=== PATIENT | female | born 1935 | race Caucasian/White ===

== ENCOUNTER 2017-04-05 08:15 | Day surgery (SDC) | payer BC, MEDICARE ==
[~2017-04-05 08:15] MED LIST: BUPIVACAINE HCL 0.75% INJ/PF (7.5 MG/1 ML) 10 ML SDV OS PRN; KETOROLAC TROMETHAMINE 0.45% 4 DROP/0.4 ML DROPERETTE OS PRN; LIDOCAINE 4% INJ/PF (40 MG/ML) 5 ML AMPUL OS PRN; MIDAZOLAM 2 MG/2 ML INJ ONE
[2017-04-05] MEDS ORDERED: CHONDR SU A NA/HYALUR INTRAOC KIT (SURGICARE) ONE (09:18)
[2017-04-05] MEDS ORDERED: EPINEPHRINE INJ/PF 1 MG/1 ML AMPULE ONE (09:18)
[2017-04-05] MEDS: TROPICAMIDE 1% OPH SOLN 3 ML OS PRN ×3 (09:33→09:53)
[2017-04-05] MEDS: CYCLOPENTOLATE 0.2%/PHENYLEPHRINE 1% OPH SOLN 2 ML OS PRN ×3 (09:33→09:53)
[2017-04-05] MEDS: BESIFLOXACIN HCL 0.6% OPH SUSP 5 ML BOTTLE OS PRN ×3 (09:33→10:43)
[2017-04-05] MEDS: LIDOCAINE 3.5% OPH GEL/PF 1 ML/TUBE OS PRN ×2 (09:34→09:53)
--- NOTE | 2017-04-05 11:02 | [facility] OPERATIVE REPORT E ---
[facility] Operative Report NAME: RALEIGH TONEY AGE: 81Y DATE OF SURGERY: 04/05/2017 ROOM: PREOPERATIVE DIAGNOSIS: Cataract, left eye. POSTOPERATIVE DIAGNOSIS: Cataract, left eye. OPERATION: Phacoemulsification with posterior chamber intraocular lens, left eye. SURGEON: MILTON CAMPOS M.D. ANESTHESIA: Topical with MAC. INDICATIONS FOR SURGERY: Difficulty reading captions on TV. Best corrected visual acuity 20/70. DESCRIPTION OF PROCEDURE: The patient was brought to the Operating Room and placed on the operative table. Following tetracaine drops, topical anesthesia was administered. This consisted of instrument wipe pledgets soaked in a solution of 4% Xylocaine mixed with 0.75% Marcaine in a 1:2 ratio. A 2 x 1 cm pledget was placed in the superior fornix. A 1 x 1 cm pledget was placed in the inferior fornix. The eye was patched shut for 5 minutes. The patch was removed. The eye was sterilely prepped and draped in the usual manner. Lid speculum was placed in the eye. The pledgets were removed. 4-0 black silk sutures were placed around the superior and the inferior rectus muscles to be used as traction. A conjunctival peritomy was made at the 10 o'clock position. Hemostasis was obtained with bipolar cautery. A posterior limbal groove was created using a crescent knife and dissected anteriorly towards the cornea. A sharp point blade was used to create a paracentesis site at the 2 o'clock position. A 2.4 mm keratome was used to enter the anterior chamber through the groove. Viscoelastic was injected into the anterior chamber. An anterior capsulotomy was performed using Utrata forceps in a capsulorrhexis fashion. Hydrodissection and hydrodelineation were performed. Phacoemulsification was performed in [id number] technique. A total of 54 seconds phaco time was used. Following this, the I/A unit was used to remove residual cortex. Viscoelastic was injected into the capsular bag. Intraocular lens model SN60WF, 20.0 diopters, serial number [id number] was placed in the capsular bag. The I/A unit was used to remove residual viscoelastic. The wound was seen to be watertight under high and low pressure, and no sutures were placed. The intraocular lens was well centered. The pressure was adjusted in the eye to normal pressure. The 4-0 black silk sutures and lid speculum were removed. The eye was shielded after Besivance drops were placed. The patient tolerated the procedure well and was sent to the Recovery Room in good condition. DICTATING PHYSICIAN: MILTON CAMPOS M.D. [id number] PHY#: [id number] ID: [id number] JOB#: [id number] ACCT: [id number] cc:MILTON CAMPOS M.D. >
--- NOTE | 2017-04-05 11:07 | [facility] DISCHARGE SUMMARY E ---
[facility] Discharge Summary NAME: RALEIGH TONEY AGE: 81Y ADMITTED: 04/05/2017 DISCHARGED: 04/05/2017 HOSPITAL COURSE: The patient is an 81-year-old lady who underwent uneventful cataract extraction with intraocular lens implant, left eye, on 04/05/2017. She will be discharged to home. She is instructed to resume preoperative medications, take Tylenol as needed for discomfort, to keep her eye shielded, to use Besivance, Durezol, and Ilevro at 3 p.m. and 8 p.m., and to follow up in my office in 1 day. DICTATING PHYSICIAN: MILTON CAMPOS M.D. [id number] PHY#: [id number] ID: [id number] JOB#: [id number] ACCT: [id number] cc:MILTON CAMPOS M.D. >
== END 2017-04-05 11:30 | disposition home or self-care (01) ==
LOC: SC 08:15
PROVIDERS: ATTEND Ophthalmology
PROC: 08RK3JZ Replacement of Left Lens with Synthetic Substitute, Percutaneous Approach (ICD-10-PCS; principal; 2017-04-05 09:45)
DX: H25.813 Combined forms of age-related cataract, bilateral (principal); H40.013 Open angle with borderline findings, low risk, bilateral; H04.123 Dry eye syndrome of bilateral lacrimal glands; I10 Essential (primary) hypertension; E03.9 Hypothyroidism, unspecified; Z79.899 Other long term (current) drug therapy
CPT/HCPCS: 66984; V2632; J2250; J3490 ×3; A9270 ×2; J0171; 142

== ENCOUNTER 2017-04-26 07:27 | Day surgery (SDC) | payer MEDICARE ==
[~2017-04-26 07:27] MED LIST changes: +BUPIVACAINE HCL 0.75% INJ/PF (7.5 MG/1 ML) 10 ML SDV OD PRN; -BUPIVACAINE HCL 0.75% INJ/PF (7.5 MG/1 ML) 10 ML SDV OS PRN; +KETOROLAC TROMETHAMINE 0.45% 4 DROP/0.4 ML DROPERETTE OD PRN; -KETOROLAC TROMETHAMINE 0.45% 4 DROP/0.4 ML DROPERETTE OS PRN; +LIDOCAINE 4% INJ/PF (40 MG/ML) 5 ML AMPUL OD PRN; -LIDOCAINE 4% INJ/PF (40 MG/ML) 5 ML AMPUL OS PRN
[2017-04-26] MEDS: TROPICAMIDE 1% OPH SOLN 3 ML OD PRN ×3 (07:45→08:08)
[2017-04-26] MEDS: BESIFLOXACIN HCL 0.6% OPH SUSP 5 ML BOTTLE OD PRN ×4 (07:45→08:54)
[2017-04-26] MEDS: CYCLOPENTOLATE 0.2%/PHENYLEPHRINE 1% OPH SOLN 2 ML OD PRN ×3 (07:45→08:08)
[2017-04-26] MEDS: TETRACAINE HCL 0.5% OPH SOLN 0.6 ML DROPERETTE OD PRN ×2 (07:45→08:29)
[2017-04-26] MEDS ORDERED: EPINEPHRINE INJ/PF 1 MG/1 ML AMPULE ONE (07:59)
[2017-04-26] MEDS ORDERED: CHONDR SU A NA/HYALUR INTRAOC KIT (SURGICARE) ONE (08:00)
--- NOTE | 2017-04-26 09:16 | [facility] OPERATIVE REPORT E ---
[facility] Operative Report NAME: RALEIGH TONEY AGE: 81Y DATE OF SURGERY: 04/26/2017 ROOM: PREOPERATIVE DIAGNOSIS: Cataract, right eye. POSTOPERATIVE DIAGNOSIS: Cataract, right eye. PROCEDURE PERFORMED: Phacoemulsification with posterior chamber intraocular lens, right eye. SURGEON: MILTON CAMPOS M.D. ANESTHESIA: Topical with MAC. INDICATIONS FOR SURGERY: Difficulty reading captions on TV. Best corrected visual acuity 20/50. DESCRIPTION OF PROCEDURE: The patient was brought to the Operating Room and placed on the operative table. Following tetracaine drops, topical anesthesia was administered. This consisted of instrument wipe pledgets soaked in a solution of 4% Xylocaine mixed with 0.75% Marcaine in a 1:2 ratio. A 2 x 1 cm pledget was placed in the superior fornix. A 1 x 1 cm pledget was placed in the inferior fornix. The eye was patched shut for 5 minutes. The patch was removed. The eye was sterilely prepped and draped in the usual manner. Lid speculum was placed in the eye. The pledgets were removed. 4-0 black silk sutures were placed around the superior and the inferior rectus muscles to be used as traction. A conjunctival peritomy was made at the 10 o'clock position. Hemostasis was obtained with bipolar cautery. A posterior limbal groove was created using a crescent knife and dissected anteriorly towards the cornea. A sharp point blade was used to create a paracentesis site at the 2 o'clock position. A 2.4 mm keratome was used to enter the anterior chamber through the groove. Viscoelastic was injected into the anterior chamber. An anterior capsulotomy was performed using Utrata forceps in a capsulorrhexis fashion. Hydrodissection and hydrodelineation were performed. Phacoemulsification was performed in [id number]-trx-vsiejsz technique. A total of 48 seconds phaco time was used. Following this, the I/A unit was used to remove residual cortex. Viscoelastic was injected into the capsular bag. Intraocular lens model SN60WF, 21.0 diopters, serial number [id number] was placed in the capsular bag. The I/A unit was used to remove residual viscoelastic. The wound was seen to be watertight under high and low pressure, and no sutures were placed. The intraocular lens was well centered. The pressure was adjusted in the eye to normal pressure. The 4-0 black silk sutures and lid speculum were removed. The eye was shielded after Besivance drops were placed. The patient tolerated the procedure well and was sent to the Recovery Room in good condition. DICTATING PHYSICIAN: MILTON CAMPOS M.D. DICTATING PHYSICIAN: MILTON CAMPOS M.D. [id number] PHY#: [id number] ID: [id number] JOB#: [id number] ACCT: [id number] cc:MILTON CAMPOS M.D. >
--- NOTE | 2017-04-26 09:19 | [facility] DISCHARGE SUMMARY E ---
[facility] Discharge Summary NAME: RALEIGH TONEY AGE: 81Y ADMITTED: 04/26/2017 DISCHARGED: 04/26/2017 HOSPITAL COURSE: The patient is an 81-year-old lady who underwent uneventful cataract extraction with intraocular lens implant right eye on 04/26/2017. She will be discharged to home. She is instructed to resume preoperative medications, take Tylenol as needed for discomfort, to keep her eye shielded, to use Besivance, Durezol, and Ilevro at 3 p.m. and 8 p.m., and to follow up in my office in 1 day. DICTATING PHYSICIAN: MILTON CAMPOS M.D. [id number] PHY#: [id number] ID: [id number] JOB#: [id number] ACCT: [id number] cc:MILTON CAMPOS M.D. >
== END 2017-04-26 09:52 | disposition home or self-care (01) ==
LOC: SC 07:27
PROVIDERS: ATTEND Ophthalmology
PROC: 08RJ3JZ Replacement of Right Lens with Synthetic Substitute, Percutaneous Approach (ICD-10-PCS; principal; 2017-04-26 08:30)
DX: H25.811 Combined forms of age-related cataract, right eye (principal); Z96.1 Presence of intraocular lens; I10 Essential (primary) hypertension; E07.9 Disorder of thyroid, unspecified; Z79.899 Other long term (current) drug therapy
CPT/HCPCS: 66984; V2632; J2250; J3490 ×3; A9270; J0171; 142

== ENCOUNTER 2017-07-17 11:44 | Emergency (ER) | payer MEDICARE ==
[2017-07-17 11:55] VITALS: BP 158/80
[2017-07-17] MEDS ORDERED: DIPHENHYDRAMINE HCL 50 MG CAPSULE PO ONE (12:46)
[2017-07-17] MEDS ORDERED: METHYLPREDNISOLONE INJ 125 MG/2 ML SDV IM ONE (12:46)
--- NOTE | 2017-07-17 12:49 | ER Document Report ---
ED Skin Rash/Insect Bite/Abscs - General Chief Complaint: Rash Stated Complaint: RASH Time Seen by Provider: 07/17/17 12:35 Mode of Arrival: Ambulatory Information source: Patient Notes: Patient is an 81-year-old female who presents to the ER today for rash on her back, chest, abdomen 4 days. Patient states that she has been putting hydrocortisone cream on it because it is itchy. She admits to sinus congestion and runny nose for approximately a week and a half that is not improving prior to the rash starting. She denies any pain with the rash, states that is equal on both sides. She is concerned that his shingles today. She denies any fevers or chills. TRAVEL OUTSIDE OF THE [place] IN LAST 30 DAYS: No - Related Data Allergies/Adverse Reactions: No Known Allergies Allergy (Verified 07/17/17 11:45) Past Medical History - General Information source: Patient - Social History Smoking Status: Unknown if Ever Smoked Family History: Reviewed & Not Pertinent - Past Medical History Cardiac Medical History: Reports: Hx Hypertension Denies: Hx Heart Attack Pulmonary Medical History: Denies: Hx Asthma Neurological Medical History: Denies: Hx Cerebrovascular Accident, Hx Seizures GI Medical History: Denies: Hx Hepatitis, Hx Hiatal Hernia, Hx Ulcer Infectious Medical History: Denies: Hx Hepatitis Past Surgical History: Denies: Hx Mastectomy, Hx Open Heart Surgery, Hx Pacemaker Review of Systems - Review of Systems Constitutional: No symptoms reported EENT: See HPI Cardiovascular: No symptoms reported Respiratory: No symptoms reported Gastrointestinal: No symptoms reported Genitourinary: No symptoms reported Female Genitourinary: No symptoms reported Musculoskeletal: No symptoms reported Skin: See HPI Hematologic/Lymphatic: No symptoms reported Neurological/Psychological: No symptoms reported Physical Exam - Vital signs Vitals: Temp Pulse Resp BP Pulse Ox 98.6 F 102 H 18 158/80 H 100 07/17/17 11:54 07/17/17 11:54 07/17/17 11:54 07/17/17 11:54 07/17/17 11:54 - Notes Notes: PHYSICAL EXAMINATION: GENERAL: Mildly ill-appearing, but in no acute distress. HEAD: Atraumatic, normocephalic. EYES: Pupils equal round and reactive to light, extraocular movements intact, sclera anicteric, conjunctiva are normal. ENT: ear canals without erythema or foreign body, TMs pearly clulen with good bony landmarks, nares with mucoid discharge, oropharynx clear without exudates. Moist mucous membranes. NECK: Normal range of motion, supple without lymphadenopathy LUNGS: CTAB and equal. No wheezes rales or rhonchi. HEART: Regular rate and rhythm without murmurs ABDOMEN: Soft, no tenderness. No guarding, no rebound BACK: no vertebral tenderness, normal ROM GI/: no CVA tenderness EXTREMITIES: Normal range of motion, no pitting edema. No cyanosis. NEUROLOGICAL: Cranial nerves grossly intact. Normal sensory/motor exams. PSYCH: Normal mood, normal affect. SKIN: Warm, Dry, normal turgor, confluent macular rash to chest, breasts, abdomen and back only Course - Re-evaluation Re-evalutation: 07/17/17 16:14 Patient given steroid shot here. I will place patient on antibiotic for what sounds like sinusitis, rash may be viral in origin. I will also have her follow -up with dermatology. - Vital Signs Vital signs: Temp Pulse Resp BP Pulse Ox 98.6 F 102 H 18 158/80 H 100 07/17/17 11:54 07/17/17 11:54 07/17/17 11:54 07/17/17 11:54 07/17/17 11:54 Discharge - Discharge Clinical Impression: Rash and nonspecific skin eruption Sinusitis Qualifiers: Sinusitis location: other Chronicity: acute Recurrence: non-recurrent Qualified Code(s): J01.80 - Other acute sinusitis Condition: Stable Disposition: HOME, SELF-CARE Additional Instructions: Return immediately for any new or worsening symptoms. Follow up with Sheet Rocker/primary care provider, call tomorrow to make followup appointment. Prescriptions: Cephalexin [Cephalexin 500 MG Capsule] 1 cap PO BID #20 capsule Referrals: DANA SAMSON DO [ACTIVE STAFF] - Follow up as needed
== END 2017-07-17 13:05 | disposition home or self-care (01) ==
LOC: ER 11:44
DX: J01.80 Other acute sinusitis (principal); R21 Rash and other nonspecific skin eruption
CPT/HCPCS: 99282; A9270; J2930